=== PATIENT | male | born 2000 | race Caucasian/White ===

== ENCOUNTER 2023-12-11 01:15 | Emergency (ER) | payer OTHER ==
[~2023-12-11] VITALS: Ht 167.6 cm; Wt 63.5 kg
[~2023-12-11 01:15] MED LIST: LORA10TA19 PO
[2023-12-11 01:16] VITALS: BP 109/70; PULSE 93; RESP 16; TEMP 96.2; O2SAT 97
[2023-12-11] MEDS ORDERED: NAPR-337 PO (02:56)
[2023-12-11 03:00] VITALS: BP 109/70; PULSE 93; RESP 16; TEMP 96.2; O2SAT 97
== END 2023-12-11 03:00 | disposition home or self-care (01) ==
LOC: MED 01:15
DX: S62.396A Other fracture of fifth metacarpal bone, right hand, initial encounter for closed fracture (principal); S62.394A Other fracture of fourth metacarpal bone, right hand, initial encounter for closed fracture; Z79.899 Other long term (current) drug therapy; W22.01XA Walked into wall, initial encounter; Y93.89 Activity, other specified; Y92.89 Other specified places as the place of occurrence of the external cause; Y99.8 Other external cause status
CPT/HCPCS: 73130; 99283

== ENCOUNTER 2023-12-13 17:03 | Emergency (ER) | payer OTHER ==
[~2023-12-13] VITALS: Ht 167.6 cm; Wt 63.5 kg
[~2023-12-13 17:03] MED LIST changes: +NAPR-337 PO
[2023-12-13 17:21] VITALS: BP 127/86; PULSE 78; RESP 16; TEMP 98.5; O2SAT 99
== END 2023-12-13 18:05 | disposition home or self-care (01) ==
LOC: MED 17:03
DX: S62.304D Unspecified fracture of fourth metacarpal bone, right hand, subsequent encounter for fracture with routine healing (principal); Z79.1 Long term (current) use of non-steroidal anti-inflammatories (NSAID); Z79.899 Other long term (current) drug therapy; W22.8XXD Striking against or struck by other objects, subsequent encounter; Y93.89 Activity, other specified; Y92.89 Other specified places as the place of occurrence of the external cause; Y99.8 Other external cause status
CPT/HCPCS: 99281

== ENCOUNTER 2024-01-02 15:10 | Emergency (ER) | payer OTHER ==
[~2024-01-02] VITALS: Ht 170.2 cm; Wt 63.5 kg
[2024-01-02 15:40] VITALS: BP 129/81; PULSE 80; RESP 18; TEMP 97.8; O2SAT 98
== END 2024-01-02 16:29 | disposition home or self-care (01) ==
LOC: MED 15:10
DX: S62.324D Displaced fracture of shaft of fourth metacarpal bone, right hand, subsequent encounter for fracture with routine healing (principal); S62.326D Displaced fracture of shaft of fifth metacarpal bone, right hand, subsequent encounter for fracture with routine healing; R03.0 Elevated blood-pressure reading, without diagnosis of hypertension; Z79.1 Long term (current) use of non-steroidal anti-inflammatories (NSAID); Z79.899 Other long term (current) drug therapy; X58.XXXA Exposure to other specified factors, initial encounter; Y93.89 Activity, other specified; Y92.89 Other specified places as the place of occurrence of the external cause; Y99.8 Other external cause status
CPT/HCPCS: 99283